=== PATIENT | female | born 1950 | race Caucasian/White ===

== ENCOUNTER 2016-08-27 16:47 | Inpatient (IN) | payer MEDICARE, BC ==
[2016-08-27] MEDS ORDERED: Sodium Chloride 0.9% 10 ML Syringe FLUSH PRN (17:01)
[2016-08-27] MEDS ORDERED: Acetaminophen 500 MG Tab PO PRN (17:57)
--- NOTE | 2016-08-27 18:04 | PCM.HP ---
H&P History of Present Illness - General Date of Service: 08/27/16 Admit Problem/Dx: Admission Diagnosis/Problem Admission Diagnosis/Problem Infection of skin Source of Information: Patient History Limitations: Reports: No limitations - History of Present Illness Initial Comments - Free Text/Narative: Lucretia started to have swelling of her lower lip 5 days ago. Had seen her in the office 4 days ago and she started the day before on antiviral medication for one day. I restarted it for longer period time and also give her prednisone as lower lip with swelling and giving her a significant amount of pain. She called today stating that her pain was much worse and was draining. I have recommended the office. A lipid swollen to twice the size it was 4 days ago. Duration of Symptoms: Reports: Day(s): Location: Reports: other (lower lip) Worsens with: Reports: Other (progressing in severity) Lower Lip Pain Score (Numeric/FACES): 4 - Related Data Allergies/Adverse Reactions: Allergies Allergy/AdvReac Type Severity Reaction Status Date / Time No Known Drug Allergies Allergy Other Verified 08/27/16 17:19 Home Medications: Home Meds Acetaminophen [Tylenol Extra Strength] 1 - 2 tab PO ASDIRECTED 08/27/16 [History ] methylPREDNISolone [Methylprednisolone] 1 tab PO ASDIRECTED 08/27/16 [History] valACYclovir HCl [valACYclovir] 1,000 mg PO BID 08/27/16 [History] H&P Review of Systems - Review of Systems: Review Of Systems: See Below General: Reports: decreased appetite, other (significant pain in the lower lip grade 6-7/10. A dull pressure type sensation) Pulmonary: Reports: No Symptoms Cardiovascular: Reports: no symptoms Gastrointestinal: Reports: No symptoms Genitourinary: Reports: no symptoms Musculoskeletal: Reports: no symptoms Skin: Reports: other (lymph swelling and draining) Psychiatric: Reports: depression, anxiety Neurological: Reports: Change in Speech Immunologic: Reports: no symptoms Exam - Exam Exam: See Below - Vital Signs Vital Signs: Last Vital Signs Temp 99.2 F 08/27/16 17:12 Pulse 86 08/27/16 17:12 Resp 14 08/27/16 17:12 BP 131/88 08/27/16 17:12 Pulse Ox 96 08/27/16 17:12 - Exam General: alert, oriented, 4 HEENT: PERRLA, Conjunctiva clear, EACs clear, EOMI, Hearing intact, Mucosa moist & pink, Nares patent, Normal nasal septum, Posterior pharynx clear, TMs clear, Other (The lower lip is swollen to several times normal size.) Neck: supple, trachea midline, 2 Lungs: Clear to auscultation, Normal respiratory effort Cardiovascular: regular rate, regular rhythm Abdomen: normal bowel sounds, soft Peripheral Pulses: 1+: radial (L), radial (R) Skin: other (There is yellow, white drainage from the lip.) - Patient Data Lab Results last 24 hrs: Laboratory Results - last 24 hr 08/27/16 08/27/16 Range/Units 17:18 17:18 WBC 12.3 H (4.5-11.0) K/uL RBC 4.31 (3.30-5.50) M/uL Hgb 12.3 (12.0-15.0) g/dL Hct 39.1 (36.0-48.0) % MCV 91 (80-98) fL MCH 29 (27-31) pg MCHC 32 (32-36) % Plt Count 301 (150-400) K/uL Neut % (Auto) 79 H (36-66) % Lymph % (Auto) 13 L (24-44) % Ray % (Auto) 8 H (2-6) % Eos % (Auto) 0 L (2-4) % Baso % (Auto) 0 (0-1) % Sodium 141 (140-148) mmol/L Potassium 3.8 (3.6-5.2) mmol/L Chloride 103 (100-108) mmol/L Carbon Dioxide 28 (21-32) mmol/L Anion Gap 10.4 (5.0-14.0) mmol/L BUN 18 (7-18) mg/dL Creatinine 0.8 (0.6-1.0) mg/dL Est Cr Clr Drug Dosing TNP Estimated GFR (MDRD) > 60 (>60) Glucose 122 H (74-106) mg/dL Calcium 9.0 (8.5-10.1) mg/dL Total Bilirubin 0.2 (0.2-1.0) mg/dL AST 12 L (15-37) U/L ALT 24 (12-78) U/L Alkaline Phosphatase 63 (46-116) U/L Total Protein 7.5 (6.4-8.2) g/dL Albumin 3.4 (3.4-5.0) g/dL Globulin 4.1 H (2.3-3.5) g/dL Albumin/Globulin Ratio 0.8 L (1.2-2.2) Result Diagrams: 08/27/16 17:18 08/27/16 17:18 Ze[facility] Results last 24 hrs: Microbiology 08/27/16 17:25 Gram Stain - Final Lip *Q Meaningful Use (ADM) - VTE *Q VTE Criteria *Q: - VTE Risk Assess *Q Each Risk Factor Represents 1 Point: None Total Score 1 Point Risk Factors: 0 - Stroke *Q Stroke Criteria *Q: - AMI *Q AMI Criteria *Q: Problem List Initiated/Reviewed/Updated: Yes Orders Last 24hrs: Active Orders 24 hr Category Date Time Status Admission Status [Patient Status] [ADT] Routine ADT 08/27/16 16:57 Active Peripheral IV Care [RC] . DIRECTED Care 08/27/16 17:01 Active Vital Signs [RC] Q4H Care 08/27/16 17:03 Active CULTURE WOUND + SMEAR [RM] Routine Lab 08/27/16 17:25 Results Acetaminophen [Tylenol Extra Strength] Med 08/27/16 17:57 Ordered 500 mg PO Q6H PRN Dextrose 5%-0.9% NaCl [Dextrose 5%-Normal Saline] 1,000 Med 08/27/16 17:15 Active ml IV ASDIRECTED Linezolid [Zyvox] 600 mg Med 08/27/16 18:00 Active Premix Bag 1 bag IV Q12H Sodium Chloride 0.9% [Saline Flush] Med 08/27/16 17:01 Active 10 ml FLUSH ASDIRECTED PRN Peripheral IV Insertion Adult [OM.PC] Routine Oth 08/27/16 17:01 Ordered Medication Orders Acetaminophen (Tylenol Extra Strength) 500 mg PO Q6H PRN PRN Reason: Pain Dextrose/Sodium Chloride (Dextrose 5%-Normal Saline) 1,000 mls @ 125 mls/hr IV ASDIRECTED JEREMY Linezolid 600 mg/ Premix 300 mls @ 300 mls/hr IV Q12H JEREMY Sodium Chloride (Saline Flush) 10 ml FLUSH ASDIRECTED PRN PRN Reason: Keep Vein Open Assessment/Plan Comment:: Assessment/Plan: #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 I cultured the lip and start her on Zyvox. We'll continue the antiviral medication as well as prednisone. #2. Hypertension: Her blood pressure is good control we'll continue with the lisinopril. Complicating her situation is her he was made a no code and is dying and was in this hospital and [facility]. She is unable to see him in her condition that she has at the present time.
[2016-08-27] MEDS: Dextrose 5%-0.9% NaCl 1,000 ML IV SCH (18:22)
[2016-08-27] MEDS: Linezolid 600 MG in Premix Bag 1 BAG IV SCH (18:27)
[2016-08-27] MEDS: Acetaminophen 500 MG Tab PO PRN (18:28)
[2016-08-28] MEDS: Acetaminophen 500 MG Tab PO PRN ×2 (00:31→07:25)
[2016-08-28] MEDS: Dextrose 5%-0.9% NaCl 1,000 ML IV SCH ×2 (03:14→13:12)
[2016-08-28] MEDS: Linezolid 600 MG in Premix Bag 1 BAG IV SCH ×2 (05:49→17:48)
[2016-08-28] MEDS ORDERED: Lidocaine 2% Viscous Solution 15 ML Cup TOP PRN (09:30)
[2016-08-29] MEDS: Linezolid 600 MG in Premix Bag 1 BAG IV SCH ×2 (05:47→17:50)
[2016-08-29] MEDS: Acetaminophen 500 MG Tab PO PRN ×2 (07:51→21:59)
--- NOTE | 2016-08-29 16:42 | PCM.PN ---
- General Info Date of Service: 08/28/16 Subjective Update: The lip is still swollen and she has pain and pain 6-12/17. The pain is dull to sharp in character as well with movement. Functional Status: Reports: other (She still has significant pain in the lip.) - Review of Systems General: Reports: Other (Pain in the lower lip.) Pulmonary: Reports: no symptoms Cardiovascular: Reports: No Symptoms Gastrointestinal: Reports: No symptoms Genitourinary: Reports: no symptoms Musculoskeletal: Reports: no symptoms Skin: Reports: no symptoms Neurological: Reports: No Symptoms Psychiatric: Reports: no symptoms - Patient Data Vitals - most recent: Last Vital Signs Temp 99.2 F 08/29/16 14:50 Pulse 88 08/29/16 10:26 Resp 18 08/29/16 14:50 BP 115/73 08/29/16 14:50 Pulse Ox 96 08/29/16 14:50 Weight - most recent: 192 lb 3.889 oz I&O - last 24 hours: Intake & Output 08/29/16 08/29/16 08/29/16 06:59 14:59 22:59 Intake Total 775 480 Output Total 600 800 500 Balance 175 -320 -500 Zeus Results last 24 hrs: Microbiology 08/27/16 17:25 Gram Stain - Final Lip Wound Culture - Final Staphylococcus Aureus Med Orders - Current: Current Medications Acetaminophen (Tylenol Extra Strength) 1,000 mg PO Q6H PRN PRN Reason: Pain Last Admin: 08/29/16 07:51 Dose: 1,000 mg Dextrose/Sodium Chloride (Dextrose 5%-Normal Saline) 1,000 mls @ 0 mls/hr IV ASDIRECTED JEREMY PRN Reason: KVO Last Admin: 08/28/16 13:12 Dose: 125 mls/hr Linezolid 600 mg/ Premix 300 mls @ 300 mls/hr IV Q12H JEREMY Last Admin: 08/29/16 05:47 Dose: 300 mls/hr Lidocaine HCl (Xylocaine 2% Viscous) 0 ml TOP ASDIRECTED PRN PRN Reason: PAIN Last Admin: 08/28/16 10:26 Dose: 15 ml Sodium Chloride (Saline Flush) 10 ml FLUSH ASDIRECTED PRN PRN Reason: Keep Vein Open Discontinued Medications Acetaminophen (Tylenol Extra Strength) 500 mg PO Q6H PRN PRN Reason: Pain - Exam General: alert, oriented, other (Significant pain in her lower lip and significant swelling that is bigger than yesterday.) HEENT: Pupils equal, Pupils reactive, EOMI, Mucous membr. moist/pink Neck: supple Lungs: Clear to auscultation, Normal respiratory effort Cardiovascular: Regular Rate, Regular Rhythm Back Exam: normal inspection, full range of motion Extremities: no edema Peripheral Pulses: 1+: radial (L), radial (R) Skin: warm, dry, intact Neurological: no new focal deficit Psy/Mental Status: alert, normal affect, normal mood - Problem List Review Problem List Initiated/Reviewed/Updated: Yes - My Orders Last 24 Hours: My Active Orders 08/29/16 09:54 Convert IV to Saline Lock [OM.PC] Routine - Plan Plan:: Assessment/Plan: #1. Staph aureus infection I cultured the lip and grew out bacteria sensitivities are pending #2. Hypertension: Her blood pressure is good control we'll continue with the lisinopril. Complicating her situation is her he was made a no code and is dying and was in this hospital and she was transferred to the group home. She is unable to see him in her condition that she has at the present time.
--- NOTE | 2016-08-29 16:43 | PCM.PN ---
- General Info Date of Service: 08/29/16 Admission Dx/Problem (Free Text): This afternoon the lip started to lose a significant amount of fluid in and the swelling has gone down this afternoon as compared to this morning. Her pain is better controlled as well. Functional Status: Reports: pain controlled - Review of Systems General: Reports: Weakness HEENT: Reports: no symptoms Pulmonary: Reports: no symptoms Cardiovascular: Reports: No Symptoms Gastrointestinal: Reports: No symptoms Genitourinary: Reports: no symptoms Musculoskeletal: Reports: no symptoms Skin: Reports: no symptoms Neurological: Reports: No Symptoms Psychiatric: Reports: no symptoms - Patient Data Vitals - most recent: Last Vital Signs Temp 99.2 F 08/29/16 14:50 Pulse 88 08/29/16 10:26 Resp 18 08/29/16 14:50 BP 115/73 08/29/16 14:50 Pulse Ox 96 08/29/16 14:50 Weight - most recent: 192 lb 3.889 oz I&O - last 24 hours: Intake & Output 08/29/16 08/29/16 08/29/16 06:59 14:59 22:59 Intake Total 775 480 Output Total 600 800 500 Balance 175 -320 -500 Zeus Results last 24 hrs: Microbiology 08/27/16 17:25 Gram Stain - Final Lip Wound Culture - Final Staphylococcus Aureus Med Orders - Current: Current Medications Acetaminophen (Tylenol Extra Strength) 1,000 mg PO Q6H PRN PRN Reason: Pain Last Admin: 08/29/16 07:51 Dose: 1,000 mg Dextrose/Sodium Chloride (Dextrose 5%-Normal Saline) 1,000 mls @ 0 mls/hr IV ASDIRECTED JEREMY PRN Reason: KVO Last Admin: 08/28/16 13:12 Dose: 125 mls/hr Linezolid 600 mg/ Premix 300 mls @ 300 mls/hr IV Q12H JEREMY Last Admin: 08/29/16 05:47 Dose: 300 mls/hr Lidocaine HCl (Xylocaine 2% Viscous) 0 ml TOP ASDIRECTED PRN PRN Reason: PAIN Last Admin: 08/28/16 10:26 Dose: 15 ml Sodium Chloride (Saline Flush) 10 ml FLUSH ASDIRECTED PRN PRN Reason: Keep Vein Open Discontinued Medications Acetaminophen (Tylenol Extra Strength) 500 mg PO Q6H PRN PRN Reason: Pain - Exam General: alert, oriented HEENT: Other (Lower lip is open and the swelling has decreased) Neck: supple Lungs: Clear to auscultation, Normal respiratory effort Cardiovascular: Regular Rate, Regular Rhythm Abdomen: bowel sounds present, soft, no tenderness, no distension Back Exam: normal inspection, full range of motion Extremities: no edema Peripheral Pulses: 1+: radial (L), radial (R) Skin: warm, dry, intact Wound/Incisions: healing well Neurological: no new focal deficit Psy/Mental Status: alert, normal affect, normal mood - Problem List Review Problem List Initiated/Reviewed/Updated: Yes - My Orders Last 24 Hours: My Active Orders 08/29/16 09:54 Convert IV to Saline Lock [OM.PC] Routine - Plan Plan:: Assessment/Plan: #1. Staph aureus infection with wide sensitivities. I will stop the Zyvox this evening and will start on clindamycin in the morning. #2. Hypertension: Her blood pressure is good control we'll continue with the lisinopril. Her family has come to see her who is a fci and is a no CODE STATUS
[2016-08-30] MEDS: Linezolid 600 MG in Premix Bag 1 BAG IV SCH (05:30)
[2016-08-30 08:39] VITALS: BP 127/89
--- NOTE | 2016-08-30 08:48 | PCM.PN ---
- General Info Date of Service: 08/30/16 Functional Status: Reports: pain controlled - Review of Systems General: Reports: No Symptoms HEENT: Reports: other (Swelling of the lower lip) Pulmonary: Reports: no symptoms Cardiovascular: Reports: No Symptoms Gastrointestinal: Reports: No symptoms Genitourinary: Reports: no symptoms Musculoskeletal: Reports: no symptoms Skin: Reports: other (Continued pain in her lower lip) Neurological: Reports: No Symptoms Psychiatric: Reports: no symptoms - Patient Data Vitals - most recent: Last Vital Signs Temp 98.1 F 08/30/16 07:00 Pulse 85 08/30/16 07:00 Resp 18 08/30/16 07:00 BP 127/89 08/30/16 07:00 Pulse Ox 99 08/30/16 07:00 Weight - most recent: 192 lb 3.889 oz I&O - last 24 hours: Intake & Output 08/29/16 08/30/16 08/30/16 22:59 06:59 14:59 Intake Total 780 900 Output Total 800 700 Balance -20 200 Lab Results last 24 hrs: Laboratory Results - last 24 hr 08/30/16 08/30/16 Range/Units 04:50 04:50 WBC 7.2 (4.5-11.0) K/uL RBC 3.73 (3.30-5.50) M/uL Hgb 10.9 L (12.0-15.0) g/dL Hct 34.5 L (36.0-48.0) % MCV 93 (80-98) fL MCH 29 (27-31) pg MCHC 32 (32-36) % Plt Count 290 (150-400) K/uL Neut % (Auto) 55 (36-66) % Lymph % (Auto) 34 (24-44) % [place] % (Auto) 7 H (2-6) % Eos % (Auto) 3 (2-4) % Baso % (Auto) 1 (0-1) % Sodium 145 (140-148) mmol/L Potassium 4.4 (3.6-5.2) mmol/L Chloride 109 H (100-108) mmol/L Carbon Dioxide 31 (21-32) mmol/L Anion Gap 9.4 (5.0-14.0) mmol/L BUN 15 (7-18) mg/dL Creatinine 0.8 (0.6-1.0) mg/dL Est Cr Clr Drug Dosing 68.18 mL/min Estimated GFR (MDRD) > 60 (>60) Glucose 97 (74-106) mg/dL Calcium 8.2 L (8.5-10.1) mg/dL Zeus Results last 24 hrs: Microbiology 08/27/16 17:25 Gram Stain - Final Lip Wound Culture - Final Staphylococcus Aureus Med Orders - Current: Current Medications Acetaminophen (Tylenol Extra Strength) 1,000 mg PO Q6H PRN PRN Reason: Pain Last Admin: 08/29/16 21:59 Dose: 1,000 mg Linezolid 600 mg/ Premix 300 mls @ 300 mls/hr IV Q12H JEREMY Last Admin: 08/30/16 05:30 Dose: 300 mls/hr Lidocaine HCl (Xylocaine 2% Viscous) 0 ml TOP ASDIRECTED PRN PRN Reason: PAIN Last Admin: 08/28/16 10:26 Dose: 15 ml Sodium Chloride (Saline Flush) 10 ml FLUSH ASDIRECTED PRN PRN Reason: Keep Vein Open Last Admin: 08/30/16 05:30 Dose: 10 ml Discontinued Medications Acetaminophen (Tylenol Extra Strength) 500 mg PO Q6H PRN PRN Reason: Pain Dextrose/Sodium Chloride (Dextrose 5%-Normal Saline) 1,000 mls @ 0 mls/hr IV ASDIRECTED JEREMY PRN Reason: KVO Last Admin: 08/28/16 13:12 Dose: 125 mls/hr - Exam General: alert, oriented, mild distress, other (The pain is much better in the lower left and the swelling is down maybe by 30%) HEENT: Pupils equal, Pupils reactive, EOMI, Mucous membr. moist/pink Neck: supple Lungs: Clear to auscultation, Normal respiratory effort Cardiovascular: Regular Rate, Regular Rhythm Abdomen: bowel sounds present, soft, no tenderness, no distension Back Exam: normal inspection, full range of motion Wound/Incisions: healing well Neurological: no new focal deficit Psy/Mental Status: alert, normal affect, normal mood - Problem List Review Problem List Initiated/Reviewed/Updated: Yes - My Orders Last 24 Hours: My Active Orders 08/29/16 09:54 Convert IV to Saline Lock [OM.PC] Routine 08/30/16 08:47 Ready for Discharge [RC] PER UNIT ROUTINE - Plan Plan:: Assessment/Plan: #1. Staph aureus infection with wide sensitivities. I started her on clindamycin 600 mg every 6 and we'll discharge home today. She can also take probiotics if she wants to purchase that [id number].
--- NOTE | 2016-08-30 08:49 | PCM.DCSUM1 ---
Discharge Summary - Discharge Data Discharge Date: 08/30/16 Discharge Disposition: Home, Self-Care 01 Condition: Good - Patient Summary/Data Hospital Course: Lucretia was admitted with a infection of the lower lip draining material through her lower lip. While in the hospital she did receive at first Zyvox and the sensitivities were reported and she was changed at the time of discharge to clindamycin 600 mg every 6 hours. Her pain was controlled with analgesic medication. The white count initially was elevated and came down to normal. Culture did grow out staph aureus which is the same as it was cultured as an outpatient. - Patient Instructions Diet: Heart Healthy Diet - Discharge Plan Prescriptions/Med Rec: Clindamycin HCl 300 mg PO QID #40 capsule Home Medications: Home Meds Acetaminophen [Tylenol Extra Strength] 1 - 2 tab PO ASDIRECTED 08/27/16 [History ] Clindamycin HCl 300 mg PO QID #40 capsule 08/30/16 [Rx] - Discharge Summary/Plan Comment Discharge Summary/Plan Comment: I will see in the office in one week or sooner if needed if the swelling does return and she has a fever. While hospitalized she did have a physiological flow murmur of no concern. - General Info Date of Service: 08/30/16 Functional Status: Reports: pain controlled - Review of Systems General: Reports: No Symptoms HEENT: Reports: no symptoms Pulmonary: Reports: no symptoms Cardiovascular: Reports: No Symptoms Gastrointestinal: Reports: No symptoms Genitourinary: Reports: no symptoms Musculoskeletal: Reports: no symptoms Skin: Reports: other (Significant swelling of lower lip.) Neurological: Reports: No Symptoms Psychiatric: Reports: no symptoms - Patient Data Vitals - Most Recent: Last Vital Signs Temp 98.1 F 08/30/16 07:00 Pulse 85 08/30/16 07:00 Resp 18 08/30/16 07:00 BP 127/89 08/30/16 07:00 Pulse Ox 99 08/30/16 07:00 Weight - Most Recent: 192 lb 3.889 oz I&O - Last 24 hours: Intake & Output 08/29/16 08/30/16 08/30/16 22:59 06:59 14:59 Intake Total 780 900 Output Total 800 700 Balance -20 200 Lab Results - Last 24 hrs: Laboratory Results - last 24 hr 08/30/16 08/30/16 Range/Units 04:50 04:50 WBC 7.2 (4.5-11.0) K/uL RBC 3.73 (3.30-5.50) M/uL Hgb 10.9 L (12.0-15.0) g/dL Hct 34.5 L (36.0-48.0) % MCV 93 (80-98) fL MCH 29 (27-31) pg MCHC 32 (32-36) % Plt Count 290 (150-400) K/uL Neut % (Auto) 55 (36-66) % Lymph % (Auto) 34 (24-44) % [place] % (Auto) 7 H (2-6) % Eos % (Auto) 3 (2-4) % Baso % (Auto) 1 (0-1) % Sodium 145 (140-148) mmol/L Potassium 4.4 (3.6-5.2) mmol/L Chloride 109 H (100-108) mmol/L Carbon Dioxide 31 (21-32) mmol/L Anion Gap 9.4 (5.0-14.0) mmol/L BUN 15 (7-18) mg/dL Creatinine 0.8 (0.6-1.0) mg/dL Est Cr Clr Drug Dosing 68.18 mL/min Estimated GFR (MDRD) > 60 (>60) Glucose 97 (74-106) mg/dL Calcium 8.2 L (8.5-10.1) mg/dL SUMMER Results - Last 24 hrs: Microbiology 08/27/16 17:25 Gram Stain - Final Lip Wound Culture - Final Staphylococcus Aureus Med Orders - Current: Current Medications Acetaminophen (Tylenol Extra Strength) 1,000 mg PO Q6H PRN PRN Reason: Pain Last Admin: 08/29/16 21:59 Dose: 1,000 mg Linezolid 600 mg/ Premix 300 mls @ 300 mls/hr IV Q12H JEREMY Last Admin: 08/30/16 05:30 Dose: 300 mls/hr Lidocaine HCl (Xylocaine 2% Viscous) 0 ml TOP ASDIRECTED PRN PRN Reason: PAIN Last Admin: 08/28/16 10:26 Dose: 15 ml Sodium Chloride (Saline Flush) 10 ml FLUSH ASDIRECTED PRN PRN Reason: Keep Vein Open Last Admin: 08/30/16 05:30 Dose: 10 ml Discontinued Medications Acetaminophen (Tylenol Extra Strength) 500 mg PO Q6H PRN PRN Reason: Pain Dextrose/Sodium Chloride (Dextrose 5%-Normal Saline) 1,000 mls @ 0 mls/hr IV ASDIRECTED JEREMY PRN Reason: KVO Last Admin: 08/28/16 13:12 Dose: 125 mls/hr - Exam General: Reports: alert, oriented HEENT: Reports: Pupils equal, Pupils reactive, EOMI, Mucous membr. moist/pink Neck: Reports: supple Lungs: Reports: Clear to auscultation, Normal respiratory effort Cardiovascular: Reports: Regular Rate, Regular Rhythm Abdomen: Reports: bowel sounds present, soft, no tenderness, no distension Extremities: Reports: no edema, normal pulses Skin: Reports: other (Swelling of the lower lip that's obvious with recent decreased by 30%.) Wound/Incisions: Reports: healing well Psy/Mental Status: Reports: alert, normal affect, normal mood *Q Meaningful Use (DIS) - VTE *Q VTE Criteria *Q: - Stroke *Q Stroke Criteria *Q: - AMI *Q AMI Criteria *Q:
== END 2016-08-30 11:50 | disposition home or self-care (01) | DRG 603 ==
LOC: JP.MS 16:47
PROVIDERS: ADMIT Internal Medicine; ATTEND Internal Medicine
DX: L08.89 Other specified local infections of the skin and subcutaneous tissue (principal); A49.01 Methicillin susceptible Staphylococcus aureus infection, unspecified site; I10 Essential (primary) hypertension
CPT/HCPCS: 36415; 80048; 80053; 85025; 87070; 87077; 87186; 87205; A9270-GY; J2020; J7050